=== PATIENT | male | born 1990 | race Hispanic/Latino ===

== ENCOUNTER 2018-07-22 11:51 | Emergency (ER) | payer SELFPAY ==
[2018-07-22 13:57] LABS: RAPID GROUP A STREP NEGATIVE (NEGATIVE)
== END 2018-07-22 15:27 | disposition home or self-care (01) ==
LOC: EDH 11:51
DX: J06.9 Acute upper respiratory infection, unspecified (principal); I10 Essential (primary) hypertension; Z90.49 Acquired absence of other specified parts of digestive tract; Z72.0 Tobacco use
CPT/HCPCS: 87804; 87880

== ENCOUNTER 2018-08-14 18:21 | Emergency (ER) | payer SELFPAY ==
[2018-08-14 19:16] LABS: RAPID GROUP A STREP NEGATIVE (NEGATIVE)
[2018-08-14 19:22] LABS: BASOPHILS % (AUTO) 0.4 % (0.0-5.0); EOSINOPHILS % (AUTO) 0.9 % (0.0-8.0); HEMATOCRIT 33.6 % (42-54); LYMPHOCYTES % (AUTO) 16.6 % (21.0-51.0); MEAN CORPUSCULAR HEMOGLOBIN 27.7 pg (27.0-33.0); MEAN CORPUSCULAR HGB CONC 35.2 g/dL (32.0-36.0); MEAN CORPUSCULAR VOLUME 78.8 fL (79-99); MONOCYTES % (AUTO) 10.2 % (3.0-13.0); NEUTROPHILS % (AUTO) 71.9 % (40.0-77.0); NUCLEATED RED BLOOD CELLS 0.1 % (0.0-0.19); PLATELET COUNT (AUTO) 156 K/uL (130-400); RED BLOOD CELL COUNT(AUTO) 4.26 MIL/uL (4.50-6.20); RED CELL DISTRIBUTION WIDTH 13.6 % (11.0-15.5); WHITE BLOOD COUNT (AUTO) 7.1 K/uL (4.8-10.8)
[2018-08-14] MEDS ORDERED: ONDANSETRON HCL 4 MG/2 ML VIAL ONE (19:31)
[2018-08-14] MEDS ORDERED: KETOROLAC TROMETHAMINE 30MG/ML ONE (19:32)
[2018-08-14 19:34] LABS: CREATININE 1.1 mg/dL (0.5-1.5); POTASSIUM 4.1 mmol/L (3.5-5.1)
[2018-08-14 19:39] LABS: ALBUMIN 3.1 g/dL (3.5-5.0); BILIRUBIN,TOTAL 2.3 mg/dL (0.2-1.0); TOTAL PROTEIN, SERUM 7.3 g/dL (6.0-8.3)
[2018-08-14] MEDS ORDERED: DEXAMETHASONE SOD PHOSPHATE 10MG/ML 1ML VIAL ONE (19:39)
[2018-08-14] MEDS ORDERED: IPRATROPIUM/ALBUTEROL SULFATE 3 ML SOLUTION IH ONE (20:02)
[2018-08-14] MEDS ORDERED: DiphenhydrAMINE HCL 50 MG/ML VIAL ONE (20:06)
== END 2018-08-14 21:19 | disposition home or self-care (01) ==
LOC: EDH 18:21
DX: J01.90 Acute sinusitis, unspecified (principal); I10 Essential (primary) hypertension
CPT/HCPCS: 36415; 71046; 80053; 85025; 87804 ×2; 87880; 94640; 96374; 96375; 99285; J1100; J1200; J1885; J2405

== ENCOUNTER 2020-05-13 22:10 | Emergency (ER) | payer OTHER ==
[2020-05-13 22:38] LABS: BASOPHILS % (AUTO) 0.5 % (0.0-5.0); EOSINOPHILS % (AUTO) 2.5 % (0.0-8.0); HEMATOCRIT 39.1 % (42-54); LYMPHOCYTES % (AUTO) 27.8 % (21.0-51.0); MEAN CORPUSCULAR HEMOGLOBIN 27.5 pg (27.0-33.0); MEAN CORPUSCULAR HGB CONC 34.5 g/dL (32.0-36.0); MEAN CORPUSCULAR VOLUME 79.6 fL (79-99); MONOCYTES % (AUTO) 6.9 % (3.0-13.0); NEUTROPHILS % (AUTO) 61.7 % (40.0-77.0); PLATELET COUNT (AUTO) 203 K/uL (130-400); RED BLOOD CELL COUNT(AUTO) 4.91 MIL/uL (4.50-6.20); RED CELL DISTRIBUTION WIDTH 13.3 % (11.0-15.5); WHITE BLOOD COUNT (AUTO) 8.1 K/uL (4.8-10.8)
[2020-05-13] MEDS ORDERED: ACETAMINOPHEN 325 MG TAB ONE (22:46)
[2020-05-13] MEDS ORDERED: SODIUM CHLORIDE 0.9% 1000ML 1,000 ML IV ONE (22:47)
[2020-05-13 22:48] LABS: CREATININE 0.9 mg/dL (0.5-1.5); POTASSIUM 3.8 mmol/L (3.5-5.1)
[2020-05-13 22:50] LABS: INR 1.01 (0.85-1.15)
[2020-05-13 22:52] LABS: PARTIAL THROMBOPLASTIN TIME 25.3 SEC (26.3-35.5)
[2020-05-13] MEDS ORDERED: ACETAMINOPHEN EXTRA STRENGTH 500 MG TABLET ONE (22:52)
[2020-05-13 22:53] LABS: ALBUMIN 3.8 g/dL (3.5-5.0); BILIRUBIN,TOTAL 1.1 mg/dL (0.2-1.0); TOTAL PROTEIN, SERUM 7.1 g/dL (6.0-8.3)
[2020-05-13 23:07] LABS: B-TYPE NATRIURETIC PEPTIDE < 5 pg/mL (0-100)
[2020-05-13] MEDS ORDERED: PROCHLORPERAZINE EDISYLATE 10 MG/2 ML VIAL ONE (23:14)
[2020-05-13] MEDS ORDERED: DiphenhydrAMINE HCL 50 MG/ML VIAL ONE (23:14)
[2020-05-13] MEDS ORDERED: KETOROLAC TROMETHAMINE 30MG/ML ONE (23:18)
[2020-05-13 23:57] LABS: APPEARANCE,URINE Clear (CLEAR); BILIRUBIN,URINE Negative (NEGATIVE); COLOR,URINE Dark Yellow (YELLOW); GLUCOSE, URINE (UA) Negative (NEGATIVE); KETONES,URINE Negative (NEGATIVE); LEUKOCYTE ESTERASE ,URINE Negative (NEGATIVE); NITRATE,URINE Negative (NEGATIVE); OCCULT BLOOD,URINE Negative (NEGATIVE); PROTEIN,URINE Negative (NEGATIVE)
== END 2020-05-14 01:05 | disposition home or self-care (01) ==
LOC: EDH 22:10
DX: R51.9 Headache, unspecified (principal); Z20.822 Contact with and (suspected) exposure to COVID-19; I10 Essential (primary) hypertension; F32.9 Major depressive disorder, single episode, unspecified; Z72.0 Tobacco use
CPT/HCPCS: 36415; 70450; 71045; 80053; 81003; 82550; 83880; 84484; 85025; 85610; 85730; 87426; 93005; 96361; 96374; 96375; 99285; J0780; J1200; J1885; J7030; U0003

== ENCOUNTER 2021-08-09 21:36 | Emergency (ER) | payer OTHER ==
[~2021-08-09] VITALS: Ht 167.6 cm; Wt 147.0 kg
[2021-08-09 22:01] LABS: BASOPHILS % (AUTO) 0.7 % (0.0-5.0); HEMATOCRIT 50.1 % (42-54); LYMPHOCYTES % (AUTO) 27.9 % (21.0-51.0); MEAN CORPUSCULAR HEMOGLOBIN 26.8 pg (27.0-33.0); MEAN CORPUSCULAR HGB CONC 32.7 g/dL (32.0-36.0); MONOCYTES % (AUTO) 8.9 % (3.0-13.0); NEUTROPHILS % (AUTO) 53.9 % (40.0-77.0); PLATELET COUNT (AUTO) 178 K/uL (130-400); RED BLOOD CELL COUNT(AUTO) 6.11 MIL/uL (4.50-6.20); RED CELL DISTRIBUTION WIDTH 13.2 % (11.0-15.5); WHITE BLOOD COUNT (AUTO) 8.5 K/uL (4.8-10.8)
[2021-08-09 22:11] LABS: CREATININE 0.9 mg/dL (0.5-1.5); POTASSIUM 3.7 mmol/L (3.5-5.1)
[2021-08-09 22:28] LABS: ALBUMIN 3.8 g/dL (3.5-5.0); BILIRUBIN,TOTAL 0.8 mg/dL (0.2-1.0); TOTAL PROTEIN, SERUM 7.5 g/dL (6.0-8.3)
[2021-08-10] MEDS ORDERED: ACYC-138 PO (00:49)
[2021-08-10] MEDS ORDERED: LANO3.5O OP (00:49)
[2021-08-10] MEDS ORDERED: PRED20TA3 PO (00:49)
[2021-08-10] MEDS ORDERED: PREDNISONE 20 MG TABLET PO ONE (01:00)
[2021-08-10 01:01] VITALS: BP 148/71
== END 2021-08-10 01:04 | disposition home or self-care (01) ==
LOC: EDH 21:36
DX: G51.0 Bell's palsy (principal); R74.8 Abnormal levels of other serum enzymes; Z90.49 Acquired absence of other specified parts of digestive tract
CPT/HCPCS: 36415; 70450; 71045; 76705; 80053; 82550; 84484; 85025; 93005

== ENCOUNTER 2022-09-20 09:56 | Emergency (ER) | payer BC, OTHER ==
[~2022-09-20] VITALS: Ht 167.6 cm; Wt 141.1 kg
[~2022-09-20 09:56] MED LIST: ACYC-138 PO; HYDR25CA PO; LANO3.5O OP; PRED20TA3 PO
[2022-09-20 10:00] VITALS: BP 129/61
[2022-09-20] MEDS ORDERED: KETOROLAC 30MG VIAL (30MG/ML) IVP ONE (11:00)
[2022-09-20] MEDS ORDERED: ACETAMINOPHEN WITH CODEINE 1 TAB TAB PO ONE (11:00)
[2022-09-20] MEDS ORDERED: PENI500T2 PO (12:12)
[2022-09-20] MEDS ORDERED: IBUP-2070 PO (12:12)
[2022-09-20] MEDS ORDERED: DEXAMETHASONE SOD PHOSPHATE 4 MG/ML 1ML VIAL IM ONE (12:30)
== END 2022-09-20 13:55 | disposition home or self-care (01) ==
LOC: EDH 09:56
DX: J02.9 Acute pharyngitis, unspecified (principal); F41.9 Anxiety disorder, unspecified; R74.8 Abnormal levels of other serum enzymes; G51.0 Bell's palsy; F17.200 Nicotine dependence, unspecified, uncomplicated; Z20.822 Contact with and (suspected) exposure to COVID-19; Z79.899 Other long term (current) drug therapy; Z90.49 Acquired absence of other specified parts of digestive tract
CPT/HCPCS: 99284; 96374; 87880; 96372; J1100; J1885

== ENCOUNTER 2023-05-26 12:38 | Emergency (ER) | payer OTHER, SELFPAY ==
[~2023-05-26] VITALS: Ht 167.6 cm; Wt 149.7 kg
[~2023-05-26 12:38] MED LIST changes: +IBUP-2070 PO; +PENI500T2 PO
[2023-05-26] MEDS: KETOROLAC 60 MG VIAL (30MG/ML) IM ONE (14:19)
[2023-05-26] MEDS ORDERED: HYDR50CA50 PO (14:23)
[2023-05-26] MEDS ORDERED: AMOX-427 PO (14:23)
[2023-05-26] MEDS ORDERED: CORTSOL AD (14:23)
[2023-05-26] MEDS: SOLU-MEDROL 125MG VIAL IM ONE (14:24)
[2023-05-26 14:26] VITALS: BP 147/82; PULSE 85; RESP 18; O2SAT 100
[2023-05-26] MEDS: AMOX/CLAV 875/125MG TAB PO ONE (14:40)
== END 2023-05-26 17:26 | disposition home or self-care (01) ==
LOC: EDH 12:38
DX: H60.92 Unspecified otitis externa, left ear (principal); F41.9 Anxiety disorder, unspecified; F17.200 Nicotine dependence, unspecified, uncomplicated; Z79.899 Other long term (current) drug therapy; Z98.890 Other specified postprocedural states
CPT/HCPCS: 99285; 70450; 71045; 96372 ×2; J2930; J1885